=== PATIENT | female | born 1985 | race Caucasian/White ===

== ENCOUNTER 2020-09-16 08:05 | Emergency (ER) | payer OTHER ==
[~2020-09-16] VITALS: Ht 152.4 cm; Wt 92.0 kg
[2020-09-16] MEDS ORDERED: ONDANSETRON PF 4 MG/2 ML VIAL. IVP ONE (08:30)
[2020-09-16] MEDS ORDERED: IV NORMAL SALINE 1,000ML 1,000 ML IV SCH (08:30)
[2020-09-16 08:52] LABS: BASO # 0.2 x10^3/uL (0.0-0.2); BASO % 2 % (0-3); EOS # 0.3 x10^3/uL (0.0-0.7); EOS % 3 % (0-3); HEMATOCRIT 42.2 % (36.0-47.0); LYMPH % 16 % (24-48); MEAN CORPUSCULAR HEMOGLOBIN 27 pg (25-35); MEAN CORPUSCULAR HGB CONC 33 g/dL (31-37); MEAN CORPUSCULAR VOLUME 83 fL (79-100); MONO # 0.5 x10^3/uL (0.0-1.1); MONO % 4 % (0-9); NEUT # 9.2 x10^3uL (1.8-7.7); NEUT % 76 % (31-73); PLATELET COUNT 245 x10^3/uL (140-400); RED BLOOD COUNT 5.11 x10^6/uL (3.50-5.40); WHITE BLOOD COUNT 12.2 x10^3/uL (4.0-11.0)
[2020-09-16 08:58] LABS: CALCIUM 9.2 mg/dL (8.5-10.1); CREATININE 0.7 mg/dL (0.6-1.0); GFR 94.7; POTASSIUM 3.8 mmol/L (3.5-5.1)
[2020-09-16 09:04] LABS: ALBUMIN 3.9 g/dL (3.4-5.0); ALBUMIN/GLOBULIN RATIO 0.9 (1.0-1.7); TOTAL BILIRUBIN 0.3 mg/dL (0.2-1.0); TOTAL PROTEIN 8.4 g/dL (6.4-8.2)
[2020-09-16 09:15] LABS: BACTERIA,URINE 0 /HPF (0-FEW); BILIRUBIN,URINE NEG (NEG); CLARITY,URINE HAZY; COLOR,URINE YELLOW; GLUCOSE,URINE >=1000 mg/dL (NEG); NITRITE,URINE NEG (NEG); RBC,URINE OCC /HPF (0-2); SQUAMOUS EPITHELIAL CELL,UR MOD /LPF; UROBILINOGEN,URINE 0.2 mg/dL (0.2 mg/dL); WBC,URINE OCC /HPF (0-4)
--- NOTE | 2020-09-16 09:19 | PHYS DOC ---
Past History Past Medical History: Bipolar, Diabetes, High Cholesterol, Other Additional Past Medical Histor: ADHD Past Surgical History: Tonsillectomy, Tubal ligation, Other Additional Past Surgical Histo: LEEP Alcohol Use: Rarely Adult General Chief Complaint Chief Complaint: ABDOMINAL PAIN HPI HPI Patient is a 34F with a past medical history of diabetes now presenting to emergency department complaint of new onset of suprapubic abdominal pain. Patient states that over the last 24 hours she developed worsening pain in the suprapubic region which radiates to bilateral lower quadrants. Patient states initially when she felt the pain she thought it was her menstrual cramps but that is significantly increased in severity. Patient notes that she did miss her last menstrual cycle. Patient states that she has a history of significant ovarian cyst which is caused pain in her abdomen before. Denies any new sexual partners. Denies any nausea, vomiting, fever, chills, dizziness, diarrhea. Review of Systems Review of Systems Constitutional: Denies fever or chills [] Eyes: Denies change in visual acuity, redness, or eye pain [] HENT: Denies nasal congestion or sore throat [] Respiratory: Denies cough or shortness of breath [] Cardiovascular: No additional information not addressed in HPI [] GI: Denies abdominal pain, nausea, vomiting, bloody stools or diarrhea [] : Denies dysuria or hematuria [] Musculoskeletal: Denies back pain or joint pain [] Integument: Denies rash or skin lesions [] Neurologic: Denies headache, focal weakness or sensory changes [] Endocrine: Denies polyuria or polydipsia [] All other systems were reviewed and found to be within normal limits, except as documented in this note. Current Medications Current Medications Current Medications Medications (Trade) Dose Ordered Sig/Kishore Start Time Stop Time Status Last Admin Dose Admin Ondansetron HCl (Zofran) 4 mg 1X ONCE 09/16/20 08:30 09/16/20 08:31 DC Sodium Chloride 1,000 ml @ 1,000 mls/hr Q1H 09/16/20 08:30 09/16/20 09:29 09/16/20 08:40 1,000 MLS/HR Allergies Allergies Allergies Coded Allergies Type Severity Reaction Last Updated Verified doxycycline Allergy Mild rash 09/16/20 Yes Physical Exam Physical Exam Constitutional: Well developed, well nourished, no acute distress, non-toxic appearance. [] HENT: Normocephalic, atraumatic, bilateral external ears normal, oropharynx moist, no oral exudates, nose normal. [] Eyes: PERRLA, EOMI, conjunctiva normal, no discharge. [] Neck: Normal range of motion, no tenderness, supple, no stridor. [] Cardiovascular:Heart rate regular rhythm, no murmur [] Lungs & Thorax: Bilateral breath sounds clear to auscultation [] Abdomen: Bowel sounds normal, soft, no tenderness, no masses, no pulsatile masses. [] Skin: Warm, dry, no erythema, no rash. [] Back: No tenderness, no CVA tenderness. [] Extremities: No tenderness, no cyanosis, no clubbing, ROM intact, no edema. [] Neurologic: Alert and oriented X 3, normal motor function, normal sensory function, no focal deficits noted. [] Psychologic: Affect normal, judgement normal, mood normal. [] Current Patient Data Vital Signs Vital Signs Date Time Temp Pulse Resp B/P (MAP) Pulse Ox O2 Delivery O2 Flow Rate FiO2 09/16/20 08:20 98.1 90 18 153/89 (110) 97 Room Air Lab Results Laboratory Tests Test 09/16/20 08:37 09/16/20 08:54 White Blood Count 12.2 x10^3/uL (4.0-11.0) H Red Blood Count 5.11 x10^6/uL (3.50-5.40) Hemoglobin 14.0 g/dL (12.0-15.5) Hematocrit 42.2 % (36.0-47.0) Mean Corpuscular Volume 83 fL (79-100) Mean Corpuscular Hemoglobin 27 pg (25-35) Mean Corpuscular Hemoglobin Concent 33 g/dL (31-37) Red Cell Distribution Width 13.0 % (11.5-14.5) Platelet Count 245 x10^3/uL (140-400) Neutrophils (%) (Auto) 76 % (31-73) H Lymphocytes (%) (Auto) 16 % (24-48) L Monocytes (%) (Auto) 4 % (0-9) Eosinophils (%) (Auto) 3 % (0-3) Basophils (%) (Auto) 2 % (0-3) Neutrophils # (Auto) 9.2 x10^3uL (1.8-7.7) H Lymphocytes # (Auto) 2.0 x10^3/uL (1.0-4.8) Monocytes # (Auto) 0.5 x10^3/uL (0.0-1.1) Eosinophils # (Auto) 0.3 x10^3/uL (0.0-0.7) Basophils # (Auto) 0.2 x10^3/uL (0.0-0.2) Sodium Level 138 mmol/L (136-145) Potassium Level 3.8 mmol/L (3.5-5.1) Chloride Level 99 mmol/L (98-107) Carbon Dioxide Level 26 mmol/L (21-32) Anion Gap 13 (6-14) Blood Urea Nitrogen 10 mg/dL (7-20) Creatinine 0.7 mg/dL (0.6-1.0) Estimated GFR (Cockcroft-Gault) 94.7 BUN/Creatinine Ratio 14 (6-20) Glucose Level 204 mg/dL (70-99) H Calcium Level 9.2 mg/dL (8.5-10.1) Total Bilirubin 0.3 mg/dL (0.2-1.0) Aspartate Amino Transferase (AST) 45 U/L (15-37) H Alanine Aminotransferase (ALT) 70 U/L (14-59) H Alkaline Phosphatase 101 U/L (46-116) Total Protein 8.4 g/dL (6.4-8.2) H Albumin 3.9 g/dL (3.4-5.0) Albumin/Globulin Ratio 0.9 (1.0-1.7) L POC Urine HCG, Qualitative hcg negative (Negative) EKG EKG [] Radiology/Procedures Radiology/Procedures US TRANSVAGINAL History: Reason: PELVIC PAIN BILAT / Spl. Instructions: / History: Comparison: None Technique: Grayscale and color Doppler imaging of the pelvis was performed using transvaginal technique. Findings: The uterus measures 9.4 x 6.2 x 4.9 cm. Uterus has an unremarkable appearance. The endometrial stripe measures 11 mm. Right ovary measures 3.1 x 2.2 x 2.6 cm. Left ovary measures 2.7 x 2.1 x 2.3 cm. Normal Doppler flow to the ovaries. No adnexal masses are seen. Fluid-filled bowel within the right adnexa. Decompressed urinary bladder. IMPRESSION: 1. Unremarkable pelvic ultrasound. Electronically signed by: Henrik Lord DO (09/16/2020 9:57 AM) [id number] Heart Score Risk Factors: Risk Factors: DM, Current or recent (<one month) smoker, HTN, HLP, family history of CAD, obesity. Risk Scores: Risk Factors: DM, Current or recent (<one month) smoker, HTN, HLP, family history of CAD, obesity. Course & Med Decision Making Course & Med Decision Making Pertinent Labs and Imaging studies reviewed. (See chart for details) 34F presenting the emergency department new onset of significant suprapubic abdominal pain. Pelvic exam did demonstrate what appears to be cervical motion tenderness generalized tenderness without any significant cervical excoriation or discharge. At this time will obtain blood work to evaluate for any significant underlying pathology and obtain an ultrasound. Will determine need for CT scan After initial ultrasound was negative patient was still having significant symptoms. CT scan of the abdomen pelvis was obtained which does demonstrate evidence of possible colitis versus hydrosalpinx raising concern for pelvic inflammatory disease. At this time will discharge the patient home on a course of antibiotics with instructions to follow-up with her primary care physician. I spoken with the patient and her caregivers. I explained the patient's condition, diagnoses and treatment plan based on the information available to me at this time. I have answered the patient and her caregiver's questions and addressed any concerns. The patient and her caregivers have a good understanding of patient's diagnosis, condition and treatment plan as can be expected at this point. Vital signs have been stable. Patient's condition is stable and appropriate for discharge from the emergency department. Patient will pursue further outpatient evaluation with primary care physician or other designated or consulting physician as outlined in the discharge instructions. The patient and/or caregivers are agreeable to this plan of care and follow-up instructions have been explained in detail. The patient and/or caregivers have received these instructions in written form and have expressed an understanding of the discharge instructions. The patient and/or caregivers are aware that any significant change of condition or worsening of symptoms should prompt immediate return to this or the closest emergency department or call to 911. Yanet Disclaimer Dragon Disclaimer This electronic medical record was generated, in whole or in part, using a voice recognition dictation system. Departure Departure: Impression: Primary Impression: Colitis Disposition: 01 DC HOME SELF CARE/HOMELESS Condition: GOOD Referrals: SUZANNE FISCHER DO (PCP) Patient Instructions: Colitis Additional Instructions: EMERGENCY DEPARTMENT GENERAL DISCHARGE INSTRUCTIONS Thank you for coming to [facility] Emergency Department (ED) today and trusting us with you care. We trust that you had a positive experience in our Emergency Department. If you wish to speak to the department management, you may call the Director at [phone]. YOUR FOLLOW UP INSTRUCTIONS ARE FOLLOWS: 1. Do you have a private Doctor? If you do not have a private doctor, please ask for a resource list of physicians or clinics that may be able to assist you with follow up care. 2. The Emergency Physicain has interpreted your x-rays. The X-Ray specialist will also review them. If there is a change in the findings, you will be notified in 48 hours when at all possible. 3. A lab test or culture has been done, your results will be reviewed and you will be notified if you need a change in treatment. ADDITIONAL INSTRUCTIONS AND INFORMATION: 1. Your care today has been supervised by a physician who is specially trained in emergency care. Many problems require more than one evaluation for a complete diagnosis and treatment. We recommend that you schedule your follow up appointment as recommended to ensure complete treatment of you illness or injury. If you are unable to obtain follow up care and continue to have a problem, or if your condition worsens, we recommend that you return to the ED. 2. We are not able to safely determine your condition over the phone nor are we able to give sound medical advice over the phone. For these safety reasons, if you call for medical advice we will ask you to come to the ED for further evaluation. 3. If you have any questions regarding these discharge instructions please call the ED at [phone]. SAFETY INFORMATION: In the interest of safety, wellness, and injury prevention; we encourage you to wear your sealbelt, if you smoke; quite smoking, and we encourage family to use a protective helmet for bicycling and other sporting events that present an increased risk for head injury. IF YOUR SYMPTOMS WORSEN OR NEW SYMPTOMS DEVELOP, OR YOU HAVE CONCERNS ABOUT YOUR CONDITION; OR IF YOUR CONDITION WORSENS WHILE YOU ARE WAITING FOR YOUR FOLLOW UP APPOINTMENT; EITHER CONTACT YOUR PRIMARY CARE DOCTOR, THE PHYSICIAN WHOSE NAME AND NUMBER YOU WERE GIVEN, OR RETURN TO THE ED IMMEDIATELY. Scripts Azithromycin (AZITHROMYCIN TABLET) 500 Mg Tablet 2 TAB PO ONCE for infection for 1 Day, #2 TAB 0 Refills to be taken on 09/23 Prov: VAISHALI HARRIS MD 09/16/20 VAISHALI HARRIS MD Sep 16, 2020 09:19
--- NOTE | 2020-09-16 09:59 | RAD ---
US TRANSVAGINAL History: Reason: PELVIC PAIN BILAT / Spl. Instructions: / History: Comparison: None Technique: Grayscale and color Doppler imaging of the pelvis was performed using transvaginal technConsumer Brands ue. Findings: The uterus measures 9.4 x 6.2 x 4.9 cm. Uterus has an unremarkable appearance. The endometrial stri pe measures 11 mm. Right ovary measures 3.1 x 2.2 x 2.6 cm. Left ovary measures 2.7 x 2.1 x 2.3 cm. Normal Doppler flow to the ovaries. No adnexal masses are seen. Fluid-filled bowel within the right adnexa. Decompressed urinary bladder. IMPRESSION: 1. Unremarkable pelvic ultrasound. Electronically signed by: Henrik Lord DO (09/16/2020 9:57 AM) [id number]
[2020-09-16] MEDS ORDERED: IOHEXOL 300 MG/ML 75 ML VIAL. IV ONE (10:30)
[2020-09-16] MEDS ORDERED: MORPHINE SULFATE 4 MG/ML DISP.SYRIN. IV ONE (10:30)
--- NOTE | 2020-09-16 11:11 | RAD ---
CT ABDOMEN+PELVIS W History: Abdominal pain Comparison: Pelvic ultrasound 09/16/2020. Technique: CT of the abdomen and pelvis with intravenous contrast. Exposure: One or more of the following individualized dose reduction techniques were utilized for thi s examination: 1. Automated exposure control 2. Adjustment of the mA and/or kV according to patient size 3. Use of iterative reconstruction technique. Findings: The lung bases are clear. No pleural or pericardial effusion. The liver is hypointense compatible with steatosis. No focal masses identified. No intra or extrahepa tic biliary ductal dilatation. The gallbladder, pancreas, spleen, adrenal glands, and kidneys are unr emarkable. Ureters are normal. The partially distended bladder is within normal limits. The stomach is decompressed. Small bowel is unremarkable. The appendix is air-filled and normal. The ascending, transverse and descending colon is normal. At the distal sigmoid colon near the rectosigmo id junction, there is wall thickening and pericolonic inflammatory fat stranding (axial image 62, cor onal 44). No significant diverticular disease. In the right pelvis, anterior to the right gonadal vei n, ovary and distal sigmoid, lateral to the appendix, there is a tubular/bilobed fluid collection lyndsey suring 4.0 x 1.7 x 2.1 cm with a well defined wall. This is also adjacent to the right fallopian tube which contains a tubal occlusion device. Retrospectively on comparison ultrasound this was attribute d to fluid containing bowel loops. The uterus is within normal limits. No significant pelvic free fluid. Abdominal pelvic vasculature is normal. No significant abdominopelvic adenopathy. Osseous structures are unremarkable. No significant soft tissue abnormality. Impression: 1. Wall thickening and adjacent fat stranding at the distal sigmoid colon near the rectosigmoid junc tion compatible with colitis, inflammatory versus infectious. No significant diverticular disease to suggest diverticulitis. 2. Tubular/bilobed fluid collection in the right adnexa which is favored to represent small hydrosalp inx. Given proximity to adjacent colitis, abscess can't be excluded but is considered less likely. 3. Hepatic steatosis. Electronically signed by: Roe Guillaume MD (09/16/2020 11:09 AM) [facility]
[2020-09-16] MEDS ORDERED: AZIT500T4 PO (11:40)
[2020-09-16] MEDS ORDERED: AZITHROMYCIN 250 MG TABLET. PO ONE (11:45)
[2020-09-16] MEDS ORDERED: metroNIDAZOLE 500 MG TABLET PO ONE (11:45)
[2020-09-16] MEDS ORDERED: LIDOCAINE 1% Multi-Dose 20 ML VIAL. ONE (11:55)
[2020-09-16 12:10] VITALS: BP 134/77
[2020-09-16] MEDS ORDERED: AZIT250T6 PO (23:31)
[2020-09-16] MEDS ORDERED: OXYC1TAB15 PO (23:31)
[2020-09-16] MEDS ORDERED: CLIN300C9 PO (23:31)
[2020-09-17 21:11] LABS: CHLAMYDIA PROBE Negative (Negative)
== END 2020-09-16 12:12 | disposition home or self-care (01) ==
LOC: ER 08:05
DX: K52.9 Noninfective gastroenteritis and colitis, unspecified (principal); E11.9 Type 2 diabetes mellitus without complications; E78.00 Pure hypercholesterolemia, unspecified; F31.9 Bipolar disorder, unspecified; Z98.51 Tubal ligation status; Z88.1 Allergy status to other antibiotic agents
CPT/HCPCS: 36415; 74177; 76830; 80053; 81001; 81025; 85025; 87491; 87591; 96361; 96372; 96374; 99285; J0696; J2270; J7030; Q0111; Q9967

== ENCOUNTER 2020-09-16 22:24 | Emergency (ER) | payer OTHER ==
[~2020-09-16] VITALS: Ht 152.4 cm; Wt 92.0 kg
[~2020-09-16 22:24] MED LIST: AZIT500T4 PO
[2020-09-16 22:32] VITALS: BP 142/79
[2020-09-16] MEDS ORDERED: oxyCODONE/APAP 5/325 1 TAB TABLET PO ONE (23:30)
[2020-09-16] MEDS ORDERED: CLIN300C9 PO (23:31)
[2020-09-16] MEDS ORDERED: AZIT250T6 PO (23:31)
[2020-09-16] MEDS ORDERED: OXYC1TAB15 PO (23:31)
[2020-09-16] MEDS ORDERED: oxyCODONE/APAP 5/325 1 TAB TABLET ONE (23:31)
--- NOTE | 2020-09-16 23:31 | PHYS DOC ---
Past History Past Medical History: Bipolar, Diabetes, High Cholesterol, Other Additional Past Medical Histor: ADHD Past Surgical History: Tonsillectomy, Tubal ligation, Other Additional Past Surgical Histo: LEEP Alcohol Use: Rarely General Adult EDM: Chief Complaint: ABDOMINAL PAIN HPI: HPI: Patient is a 34-year-old female coming in for low abdominal pain. Was seen earlier in the emergency department had extensive work-up including lab work, pelvic ultrasound, CT, pelvic exam. Patient was diagnosed with colitis and treated antibiotics. Per chart review patient's ultrasound showed fluid in the right ovary. Per note she has cervical motion tenderness on exam. Was treated with IM Rocephin and azithromycin due to a doxycycline allergy. Patient's symptoms have not changed, she is having difficulty sleeping due to the morphine that she received earlier wearing off and pain is not relieved by ibuprofen. Review of Systems: Review of Systems: All other systems within normal limits except for as noted in the HPI Current Medications: Current Meds: Current Medications Medications (Trade) Dose Ordered Sig/Kishore Start Time Stop Time Status Last Admin Dose Admin Fentanyl Citrate (Fentanyl 2ml Vial) 75 mcg 1X ONCE 09/16/20 22:45 09/16/20 23:10 DC 09/16/20 22:59 75 MCG Oxycodone/ Acetaminophen (Percocet 5/325) 2 tab 1X ONCE 09/16/20 23:30 09/16/20 23:31 UNV Allergies: Allergies: Allergies Coded Allergies Type Severity Reaction Last Updated Verified doxycycline Allergy Mild rash 09/16/20 Yes Physical Exam: PE: Constitutional: Well developed, well nourished, no acute distress, non-toxic appearance. [] HENT: Normocephalic, atraumatic, bilateral external ears normal, nose normal. [] Eyes: PERRLA, conjunctiva normal, no discharge. [] Neck: No rigidity, supple, no stridor. [] Cardiovascular: Regular rate and rhythm, brisk cap refill [] Lungs & Thorax: Non labored symmetric respirations, no tachypnea or respiratory distress [] Abdomen: Soft, nondistended, generalized tenderness. Skin: Warm, dry, no erythema, no rash. [] Back: Unremarkable Extremities: No deformities, range of motion grossly intact, no lower extremity edema [] Neurologic: Alert and oriented X 3, no focal deficits noted. [] Psychologic: Affect normal, judgement normal, mood normal. [] Current Patient Data: Vital Signs: Vital Signs Date Time Temp Pulse Resp B/P (MAP) Pulse Ox O2 Delivery O2 Flow Rate FiO2 09/16/20 22:59 18 09/16/20 22:32 98.7 85 142/79 (100) 97 EKG: EKG: [] Radiology/Procedures: Radiology/Procedures: [] Heart Score: Risk Factors: Risk Factors: DM, Current or recent (<one month) smoker, HTN, HLP, family history of CAD, obesity. Risk Scores: Score 0 - 3: 2.5% MACE over next 6 weeks - Discharge Home Score 4 - 6: 20.3% MACE over next 6 weeks - Admit for Clinical Observation Score 7 - 10: 72.7% MACE over next 6 weeks - Early Invasive Strategies Course & Med Decision Making: Course & Med Decision Making Chart reviewed, no indication for repeat work-up. Discussed with Dr. Chopra, [employer], regarding treatment for possible tubo-ovarian abscess. Since vital signs are stable and patient is afebrile culture is an outpatient but is recommending clindamycin 300 mg every 8 for 1 week and azithromycin twice daily for 1 week. [] Dragon Disclaimer: Dragon Disclaimer: This electronic medical record was generated, in whole or in part, using a voice recognition dictation system. Departure Departure: Impression: Primary Impression: Tubo-ovarian abscess Additional Impression: Abdominal pain Disposition: 01 DC HOME SELF CARE/HOMELESS Condition: STABLE Referrals: [facility] Patient Instructions: Abdominal Pain Scripts Azithromycin (AZITHROMYCIN TABLET) 250 Mg Tablet 250 MG PO BID for ANTI-BIOTIC for 7 Days, #14 TAB 0 Refills Prov: DARREL COX MD 09/16/20 Clindamycin Hcl (CLINDAMYCIN HCL) 300 Mg Capsule 1 CAP PO TID for antibiotic for 7 Days, #21 CAP Prov: DARREL COX MD 09/16/20 Oxycodone Hcl/Acetaminophen (PERCOCET 5-325 MG TABLET ) 1 Each Tablet 1 TAB PO PRN QID PRN for PAIN MDD 4 Tablet(s) for 5 Days, #20 TAB 0 Refills Prov: DARREL COX MD 09/16/20 DARREL COX MD Sep 16, 2020 23:31
== END 2020-09-16 23:41 | disposition home or self-care (01) ==
LOC: ER 22:24
DX: N70.93 Salpingitis and oophoritis, unspecified (principal); R10.84 Generalized abdominal pain; E11.9 Type 2 diabetes mellitus without complications; E78.00 Pure hypercholesterolemia, unspecified; F31.9 Bipolar disorder, unspecified; F90.9 Attention-deficit hyperactivity disorder, unspecified type; Z98.51 Tubal ligation status
CPT/HCPCS: 96374; 99283; J3010

== ENCOUNTER 2021-03-01 16:26 | Emergency (ER) | payer OTHER ==
[~2021-03-01] VITALS: Ht 152.4 cm; Wt 85.0 kg
[~2021-03-01 16:26] MED LIST changes: +AZIT250T6 PO; +CLIN300C9 PO; +OXYC1TAB15 PO
[2021-03-01 16:44] VITALS: BP 129/64
--- NOTE | 2021-03-01 16:50 | PHYS DOC ---
Past History Past Medical History: Bipolar, Diabetes, High Cholesterol, Other Additional Past Medical Histor: ADHD Past Surgical History: Tonsillectomy, Tubal ligation, Other Additional Past Surgical Histo: LEEP, Gastric sleeve Alcohol Use: Rarely General Adult EDM: Chief Complaint: POST-OP PROBLEM HPI: HPI: Patient is a 35 year old female with history of recent gastric sleeve surgery 02/[address] Rodriguez at [facility] who presents with bleeding from incision site. Bleeding started approximate 20 minutes prior to arrival. They attempted to contact Dr. Rodriguez's office, or unfortunately unsuccessful. She has not had any increase in abdominal pain or bruising. Has not seen the wound dehisced at all. No fevers or chills. Is otherwise been recovering well. Review of Systems: Review of Systems: Constitutional: Denies fever or chills Eyes: Denies change in visual acuity HENT: Denies nasal congestion or sore throat Respiratory: Denies cough or shortness of breath Cardiovascular: Denies chest pain or edema GI: Mild abdominal pain postoperatively. Bleeding from postop wound. : Denies dysuria Musculoskeletal: Denies back pain or joint pain Integument: Denies rash Neurologic: Denies headache, focal weakness or sensory changes Endocrine: Denies polyuria or polydipsia Lymphatic: Denies swollen glands Psychiatric: Denies depression or anxiety Family History: Family History: No pertinent family history Allergies: Allergies: Allergies Coded Allergies Type Severity Reaction Last Updated Verified doxycycline Allergy Mild rash 09/16/20 Yes Physical Exam: PE: Constitutional: Well developed, well nourished, no acute distress, non-toxic appearance. [] HENT: Normocephalic, atraumatic, bilateral external ears normal, oropharynx moist, no oral exudates, nose normal. [] Eyes: PERRLA, EOMI, conjunctiva normal, no discharge. [] Neck: Normal range of motion, no tenderness, supple, no stridor. [] Cardiovascular:Heart rate regular rhythm, no murmur [] Lungs & Thorax: Bilateral breath sounds clear to auscultation [] Abdomen: Several postop port sites. No erythema or cellulitic changes. Expected bruising with yellow/green discoloration. Right side of a central port area with slow oozing. No evidence of dehiscence. Abdomen is tender as expected and postop period. [] Skin: Warm, dry, no erythema, no rash. [] Back: No tenderness, no CVA tenderness. [] Extremities: No tenderness, no cyanosis, no clubbing, ROM intact, no edema. [] Neurologic: Alert and oriented X 3, normal motor function, normal sensory function, no focal deficits noted. [] Psychologic: Affect normal, judgement normal, mood normal. [] EKG: EKG: [] Radiology/Procedures: Radiology/Procedures: [] Heart Score: C/O Chest Pain: N/A Risk Factors: Risk Factors: DM, Current or recent (<one month) smoker, HTN, HLP, family history of CAD, obesity. Risk Scores: Score 0 - 3: 2.5% MACE over next 6 weeks - Discharge Home Score 4 - 6: 20.3% MACE over next 6 weeks - Admit for Clinical Observation Score 7 - 10: 72.7% MACE over next 6 weeks - Early Invasive Strategies Course & Med Decision Making: Course & Med Decision Making Pertinent Labs and Imaging studies reviewed. (See chart for details) Patient a 35-year-old female with a history of recent gastric sleeve surgery on 02/[address] Rodriguez [facility]. She presents with slight bleeding from a port site. She denies any abdominal pain or renaldo dehiscence. No evidence of dehiscence on examination. I will call the on-call doctor for the surgical group, to discuss how they would like to manage this bleeding. I do not feel that she requires emergent CT there is a small seems to be external. [address] Yuan, a covering physician for Dr. Rodriguez's group. He recommends closure with suture in the emergency department. This was done and hemostasis was achieved. Patient will be safe to follow-up with Dr. Rodriguez this week. Indication: Postoperative incisional bleeding Procedure: The patient was placed in the appropriate position and anesthesia around the abdominal incision which was anesthetized with 1% lidocaine with epinephrine. The area was then cleansed with chlorhexidine. The bleeding was stopped with a single [id number] 4-0 Ethilon suture.. The wound was then closed with a layer of surgical glue Total repaired wound length: 1 cm. Other Items: None The patient tolerated the procedure well. Complications: None. Dragon Disclaimer: Dragon Disclaimer: This electronic medical record was generated, in whole or in part, using a voice recognition dictation system. Departure Departure: Impression: Primary Impression: Postoperative bleeding from incision Disposition: 01 HOME / SELF CARE / HOMELESS Condition: IMPROVED Referrals: SUZANNE FISCHER DO (PCP) Additional Instructions: Please call the [facility] bariatric surgery group to schedule follow-up appoin tment with Dr. Rodriguez this week. If bleeding returns please return to the emergency department for reevaluation. Likewise, if you have increasing abdominal pain, fever/chills, nausea/vomiting, or other new/concerning symptoms please return to the emergency department for reevaluation. JN RICHTER MD Mar 01, 2021 16:50
[2021-03-01] MEDS ORDERED: LIDOCAINE 1%/EPI 1:100,000 20 ML VIAL. INJ ONE (17:15)
== END 2021-03-01 17:46 | disposition home or self-care (01) ==
LOC: ER 16:26
DX: G89.18 Other acute postprocedural pain (principal); R10.9 Unspecified abdominal pain; E11.9 Type 2 diabetes mellitus without complications; E78.5 Hyperlipidemia, unspecified; Z98.51 Tubal ligation status; Z88.1 Allergy status to other antibiotic agents
CPT/HCPCS: 10060; 99282; 99283-25

== ENCOUNTER 2021-04-07 16:38 | Emergency (ER) | payer OTHER ==
[~2021-04-07] VITALS: Ht 165.1 cm; Wt 84.0 kg
[2021-04-07 16:51] VITALS: BP 127/62
--- NOTE | 2021-04-07 16:51 | PHYS DOC ---
Past History Past Medical History: Bipolar, Diabetes, High Cholesterol, Other Additional Past Medical Histor: ADHD Past Surgical History: No Surgical History Additional Past Surgical Histo: LEEP, Gastric sleeve Alcohol Use: None Adult General Chief Complaint Chief Complaint: ABSCESS HPI HPI Patient is a 35-year-old female presenting for abscess. This is present on the right side of her back and was first noticed 5 days ago. 48 hours ago she went to local urgent care and was placed on Keflex which he has been taking as scheduled. Nonetheless, she reports minimal improvement if any in total abscess and is presenting today for pain control. Reports fluctuant mass on right side of flank is painful with palpation. There has been no draining. No other concerning systemic signs of symptoms such as fever, or chills. Review of Systems Review of Systems Fourteen body systems of review of systems have been reviewed. See HPI for pertinent positives and negative responses, other yang all other systems are negative, non-pertinent or non-contributory Allergies Allergies Allergies Coded Allergies Type Severity Reaction Last Updated Verified doxycycline Allergy Mild rash 09/16/20 Yes Physical Exam Physical Exam Constitutional: Well developed, well nourished, no acute distress, non-toxic appearance. HENT: Normocephalic, atraumatic, bilateral external ears normal, oropharynx moist, no oral exudates, nose normal. Eyes: PERRLA, EOMI, conjunctiva normal, no discharge. Neck: Normal range of motion, no tenderness, supple, no stridor. Cardiovascular: Heart rate regular, sinus rhythm, no murmurs rubs or gallops Lungs & Thorax: Bilateral breath sounds clear to auscultation Abdomen: Bowel sounds normal, soft, no tenderness, no masses, no pulsatile masses. Nonsurgical abdomen, no peritoneal signs Skin: Warm, dry, no rash. Patient has a 2 x 5 cm abscess that is fluctuant with palpation on right posterior side of flank at level of T6 with 3 cm diameter ri ng of erythema, no crepitus or streaking present Back: No tenderness, no CVA tenderness. Extremities: No tenderness, no cyanosis, no clubbing, ROM intact, no edema. Neurologic: Alert and oriented X 3, grossly normal motor & sensory function, no focal deficits noted. Psychologic: Anxious affect and mood Current Patient Data Vital Signs Vital Signs Date Time Temp Pulse Resp B/P (MAP) Pulse Ox O2 Delivery O2 Flow Rate FiO2 04/07/21 16:51 97.8 94 18 127/62 (83) 97 Room Air Vital Signs Date Time Temp Pulse Resp B/P (MAP) Pulse Ox O2 Delivery O2 Flow Rate FiO2 04/07/21 17:02 Room Air 04/07/21 16:51 97.8 94 18 127/62 (83) 97 EKG EKG [] Radiology/Procedures Radiology/Procedures [] Heart Score C/O Chest Pain: No Risk Factors: Risk Factors: DM, Current or recent (<one month) smoker, HTN, HLP, family history of CAD, obesity. Risk Scores: Risk Factors: DM, Current or recent (<one month) smoker, HTN, HLP, family history of CAD, obesity. Course & Med Decision Making Course & Med Decision Making Pertinent Labs and Imaging studies reviewed. (See chart for details) [] Dragon Disclaimer Dragon Disclaimer This electronic medical record was generated, in whole or in part, using a voice recognition dictation system. Incision and Drainage Incision and Drainage : Site: 2 x 4 cm Blade Size: 11 I & D Procedure: betadine prep, sterile dressing applied Progress Verbal consent obtained from patient after reviewing risks and benefits such as pain, infection, underlying tissue/muscle/tendon etc. involvement. Patient confirmed and agreed to procedure. A timeout was taken with patient team ensure proper identification and location of incision and drainage was being performed. Alcohol prep pads and subsequent Betadine used to clean wound. An eleven blade scalpel was introduced and produced a 1 cm incision. Base of abscess was found after tunneling with hemostats and breaking up all loculations. Significant amount of mucopurulent white material was expressed which improved patient's symptoms. Site was recleaned and appropriate dressing reapplied Departure Departure: Impression: Primary Impression: Abscess of back Disposition: HOME / SELF CARE / HOMELESS Condition: STABLE Referrals: SUZANNE FISCHER DO (PCP) Patient Instructions: Incision and Drainage Additional Instructions: You were evaluated in the Emergency Department for an abscess. Your abscess was incised and drained in the Emergency Department. You should change the dressing every 24 hours. Please keep the areas surrounding the abscess clean and dry. Take the previously prescribed antibiotics prescribed to you in full as directed. Please follow up with your primary care physician as needed. If you do not have a primary doctor, you can call your insurance company to find one. If you do not have insurance, you can go to the finance/registration department for more assistance. Return to the Emergency Department if you experience worsening pain, persistent fevers greater than 100.4, an increase in area of redness, increased tenderness/warmth around the abscess, foul smelling discharge from the abscess, or any other concerning symptoms. Scripts Hydrocodone Bit/Acetaminophen (HYDROCODONE-APAP 5-325 ) 1 Each Tablet 1 TAB PO PRN Q6HRS PRN for PAIN, #5 TAB 0 Refills Prov: RICKEY CERDA DO 04/07/21 RICKEY CERDA DO Apr 07, 2021 16:51
[2021-04-07] MEDS ORDERED: HYDROcodone/APAP 5/325MG 1 TAB TABLET PO ONE (17:00)
[2021-04-07] MEDS ORDERED: HYDR-2155 PO (17:33)
== END 2021-04-07 17:43 | disposition home or self-care (01) ==
LOC: ER 16:38
DX: L02.212 Cutaneous abscess of back [any part, except buttock and flank] (principal); F31.9 Bipolar disorder, unspecified; E11.9 Type 2 diabetes mellitus without complications; E78.00 Pure hypercholesterolemia, unspecified; Z88.1 Allergy status to other antibiotic agents
CPT/HCPCS: 10060; 99283